=== PATIENT | female | born 1975 | race Two or more races ===

== ENCOUNTER 2024-11-20 08:44 | Emergency (ER) | payer BC, OTHER ==
[~2024-11-20] VITALS: Ht 167.6 cm; Wt 89.2 kg
--- NOTE | 2024-11-20 09:38 | ED.PDOC ---
Musculoskeletal HPI Comments 49-year-old female patient presents to the clinic for right calf pain x7 days. Patient has scattered bruising to the right calf. Patient states that she had a deep tissue massage yesterday at the chiropractor for the pain. Patient has been standing I have no all day due to a new position at work. Patient states that she has been standing for more than 8 hours 7 days a week. Patient has not been wearing compression stockings. Patient denies any history of DVT. Patient denies any chest pain or shortness of breath. No swelling or inflammation noted to the right calf. Patient denies any knee pain or ankle pain. Chief Complaint: Lower Extremity Time Seen by MD: 08:54 Primary Care Provider: britton Norman Notes: Nurses Notes, Medications, Allergies Allergies: Coded Allergies: NO KNOWN ALLERGIES (Unverified , 11/20/24) Home Meds Active Scripts Lidocaine (Anorectal) (Lidocaine 5%) 5 % Cre, 5 % EX TID for 20 Days, #60 GRAMS 0 Refills Prov:SHEILA BISHOP [employer] 11/20/24 Ibuprofen (Ibuprofen) 600 Mg Tab, 1 TAB PO TID for 21 Days, #63 TAB 0 Refills Prov:SHEILA BISHOP [employer] 11/20/24 Acetaminophen W/ Codeine (Tylenol W/Cod #3) 1 Tab Tb, 1 TAB PO Q6HP PRN for 2 Days, #8 TAB 0 Refills Prov:SHEILA BISHOP [employer]PECT[employer] 11/20/24 Mode of Arrival: Ambulatory Constitutional: denies: chills, diaphoresis, fatigue, fever, malaise, sweats, weakness, others EENTM: denies: blurred vision, double vision, ear bleeding, ear discharge, ear drainage, ear pain, ear ringing, eye pain, eye redness, hearing loss, mouth pain, mouth swelling, nasal discharge, nose bleeding, nose congestion, nose pain, photophobia, tearing, throat pain, throat swelling, voice changes, others Respiratory: denies: cough, hemoptysis, orthopnea, SOB at rest, shortness of breath, SOB with excertion, stridor, wheezing, others Cardiovascular: denies: chest pain, dizzy spells, diaphoresis, Dyspnea on exertion, edema, irregular heart beat, left arm pain, lightheadedness, palpitat ions, PND, syncope, others Gastrointestinal: denies: abdomen distended, abdominal pain, blood streaked bow els, constipated, diarrhea, dysphagia, difficulty swallowing, hematemesis, melena, nausea, poor appetite, poor fluid intake, rectal bleeding, rectal pain, vomiting, others Genitourinary: denies: abnormal vagina bleeding, burning, dyspareunia, dysuria, flank pain, frequency, hematuria, incontinence, pain, , vagina discharge, urgency, others Musculoskeletal: reports: muscle pain (Right calf) Integumetry: denies: bruises, change in color, change in hair/nails, dryness, laceration, lesions, lumps, rash, wounds, others Allergic/Immunocompromised: denies: Difficulty Healing, Frequent Infections, Hives, Itching, others Hematologic/Lymphatic: denies: anemia, blood clots, easy bleeding, easy bruising, swollen glands, others Endocrine: denies: excessive hunger, excessive sweating, excessive thirst, excessive urination, flushing, intolerance to cold, intolerance to heat, unexplained weight gain, unexplained weight loss, others Psychiatric: denies: anxiety, bipolar disorder, depression, hopeless, panic disorder, schizophrenia, sleepless, suicidal, others All Other Systems: Reviewed and Negative Physical Exam General Appearance: No Apparent Distress, Normal HEENT: Normal ENT Inspection, Pharynx Normal, TMs Normal Neck: Full Range of Motion, Non-Tender, Normal, Normal Inspection Respiratory: Chest Non-Tender, Lungs Clear, No Accessory Muscle Use, No R espiratory Distress, Normal Breath Sounds Cardiovascular: No Edema, No JVD, No Murmur, No Gallop, Normal Peripheral Pulses, Regular Rate/Rhythm Breast Exam: Deferred Gastrointestinal: No Organomegaly, Non Tender, No Pulsatile Mass, Normal Bowel Sounds, Soft Genitalia: Deferred Pelvic: Deferred Rectal: Deferred Extremities: No calf tenderness, Normal capillary refill, Normal inspection, Normal range of motion, Non-tender, No pedal edema Musculoskeletal : Location: Right Extremity Location: Calf (Tenderness to palpation to the right calf, scattered bruising to the right calf) Apperance: Tenderness: Moderate Neurologic: Alert, 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 Was a procedure done?: No Differential Diagnosis EXT Differential Diagnosis: Deep Vein Thrombosis, Sprain, Contusion X-Ray, Labs, Meds, VS Vital Signs Date Time Temp Pulse Resp B/P (MAP) Pulse Ox O2 Delivery O2 Flow Rate FiO2 11/20/24 12:32 74 17 98 Room Air 11/20/24 12:32 98.3 74 17 120/63 (82) 98 98.3 11/20/24 11:03 98.8 11/20/24 10:05 98.0 11/20/24 09:51 98.7 88 18 118/78 (91) 98 98.7 11/20/24 09:51 78 17 98 Room Air 11/20/24 08:54 98.2 87 17 109/70 (83) 99 Current Medications Medications (Trade) Dose Ordered Sig/Sanchez Route Start Time Stop Time Status Last Admin Acetaminophen (Tylenol Tablet) 325 mg ONCE ONCE PO 11/20/24 10:00 11/20/24 10:07 DC 11/20/24 10:05 Acetaminophen/ Hydrocodone Bitart ([facility] 5/325MG Tab) 1 tab ONCE ONCE PO 11/20/24 10:45 11/20/24 10:46 DC 11/20/24 10:48 PATIENT: JESENIA OSBORNE: [id number]: [id number] : 1975 LOC: ER ROOM / BED: / AGE / SEX: 49 / F ADM STATUS: REG ER SERVICE [id number] ORDERING PHYSICIAN: SHEILA BISHOP PROCEDURE(s): RLDVT - RT Lower DVT REASON: pain to the right calf ORDER NUMBER(s): [id number], ACCESSION NUMBER(s): [id number] RIGHT LOWER EXTREMITY VENOUS DOPPLER CLINICAL HISTORY: pain to the right calf TECHNIQUE: Right lower extremity venous doppler study was performed. COMPARISON: None FINDINGS: The right common femoral, superficial femoral, popliteal, posterior tibial veins appear patent with normal augmentation, phasicity, compressibility and color- flow. . IMPRESSION: 1. No sonographic evidence of DVT in the right leg. HS:Y ATED BY: LUIS CULLEN MD DICTATED DATE/TIME: 11/20/24 115 SIGNED BY: LUIS CULLEN MD SIGNED DATE/TIME: 11/20/241156 CC: X-Ray, Labs, Meds, VS Comment Patient advised to use compression stockings during the day while standing and walking at her new job. Patient advised to take anti-inflammatories for pain. Patient advised to elevate at the end of her day to help with pain relief. On re-evaluation patient has symptomatic improvement. Patient is stable for discharge at this time. All test results and diagnostic imaging have been interpreted. All diagnostic findings, discharge care, and education instruction provided to the patient. Follow-up with PCP in 2-3 days Patient verbalized understanding, discharge instructions and agrees to treatment plan Vital signs are stable Patient is ambulatory Patient advised of which symptoms necessitate a return visit to the emergency room. Patient to return emergency room for any new worsening symptoms. Patient is aware that the purpose of this visit is for an acute medical emergency requiring emergent stabilization. Chronic conditions, including malignancies have not been ruled out. Patient is instructed to follow up with PCP as directed for continued care and workup. If unable to arrange follow up, patient is to return to the emergency room for reassessment. Patient was given verbal and written discharge instructions and acknowledges understanding Time of 1ST Reevaluation: 12:00 Reevaluation 1ST: Improved Patient Education/Counseling: Diagnosis, Treatment, Prognosis Family Education/Counseling: No Family Present Departure 1 Departure Time of Disposition: 12:15 Impression: Primary Impression: Right calf pain Additional Impression: Muscle cramp Disposition: HOME / SELF CARE / HOMELESS Condition: Stable e-Prescriptions Lidocaine (Anorectal) (Lidocaine 5%) 5 % Cre 5 % EX TID for 20 Days, #60 GRAMS 0 Refills Prov: SHEILA BISHOP [employer] INSPECTOR 11/20/24 Ibuprofen (Ibuprofen) 600 Mg Tab 1 TAB PO TID for 21 Days, #63 TAB 0 Refills Prov: SHEILA BISHOP [employer] INSPECTOR 11/20/24 Acetaminophen W/ Codeine (Tylenol W/Cod #3) 1 Tab Tb 1 TAB PO Q6HP PRN for 2 Days, #8 TAB 0 Refills Prov: SHEILA BISHOP [employer] INSPECTOR 11/20/24 Discharged With: Self Critical Care Note Critical Care Time?: No Stability Stability form required: No Heart Score Heart Score: Heart Score Response (Comments) Value History N/A 0 EKG N/A 0 Age N/A 0 Risk Factors N/A 0 Troponin N/A 0 Total 0 SHEILA BISHOP [facility] Nov 20, 2024 09:38
[2024-11-20] MEDS: ACETAMINOPHEN 325 MG TAB PO ONE (10:05)
[2024-11-20] MEDS: HYDROcodone-ACET 5/325MG TAB PO ONE (10:48)
--- NOTE | 2024-11-20 11:59 | DVH ---
RIGHT LOWER EXTREMITY VENOUS DOPPLER CLINICAL HISTORY: pain to the right calf TECHNIQUE: Right lower extremity venous doppler study was performed. COMPARISON: None FINDINGS: The right common femoral, superficial femoral, popliteal, posterior tibial veins appear patent with n ormal augmentation, phasicity, compressibility and color-flow. . IMPRESSION: 1. No sonographic evidence of DVT in the right leg. HS:Y
[2024-11-20] MEDS ORDERED: ACE3T PO (12:19)
[2024-11-20] MEDS ORDERED: IBUP-1454 PO (12:20)
[2024-11-20] MEDS ORDERED: LIDO5CRE14 EX (12:21)
[2024-11-20 12:32] VITALS: BP 120/63; PULSE 74; RESP 17; TEMP 98.3; O2SAT 98
== END 2024-11-20 12:34 | disposition home or self-care (01) ==
LOC: ER 08:44
DX: S80.11XA Contusion of right lower leg, initial encounter (principal); Z79.899 Other long term (current) drug therapy; X58.XXXA Exposure to other specified factors, initial encounter; Y93.89 Activity, other specified; Y92.89 Other specified places as the place of occurrence of the external cause; Y99.8 Other external cause status
CPT/HCPCS: 93971

== ENCOUNTER 2025-05-29 11:15 | Inpatient (IN) | payer BC ==
[~2025-05-29] VITALS: Ht 165.1 cm; Wt 81.4 kg
[~2025-05-29 11:15] MED LIST: ACE3T PO; IBUP-1454 PO; LIDO5CRE14 EX
--- NOTE | 2025-05-29 11:47 | ED.PDOC ---
History of Present Illness HPI Comments 50-year-old female presents to the ER with prior surgical history of , gastric bypass and the chief complaint of diarrhea. Patient reports on having massive watery diarrhea which has been on and off for the past week. Patient states on having worsened symptoms last night for which she went to urgent care and was sent to the ER. Patient Notes that she does have an appointment with her PCP in six weeks. Denies chills, fever, N/V, SOB, CP. No other associated symptoms, modifiers, recent injuries or sick contacts present at this time. Time Seen by MD: 11:30 Primary Care Provider: britton Reviewed Notes: Nurses Notes, Medications, Allergies Allergies: Coded Allergies: NO KNOWN ALLERGIES (Unverified , 11/20/24) Home Meds Active Scripts Lidocaine (Anorectal) (Lidocaine 5%) 5 % Cre, 5 % EX TID for 20 Days, #60 GRAMS 0 Refills Prov:SHEILA BISHOP [facility] 11/20/24 Ibuprofen (Ibuprofen) 600 Mg Tab, 1 TAB PO TID for 21 Days, #63 TAB 0 Refills Prov:SHEILA BISHOP [facility] 11/20/24 Acetaminophen W/ Codeine (Tylenol W/Cod #3) 1 Tab Tb, 1 TAB PO Q6HP PRN for 2 Days, #8 TAB 0 Refills Prov:SHEILA BISHOP [facility] 11/20/24 Information Source: Patient Mode of Arrival: Ambulatory Severity: Moderate Timing: Days Duration: Since onset, Days Prehospital treatment: None Past Medical History PAST MEDICAL HISTORY: Denies Surgical History: Surgical History (Other): Gastric bypass SPA HOST History: No Pertinent SPA HOST History Family History Family History: Reviewed,noncontributory to illness, Unknown Social History Smoker: Non-Smoker Alcohol: Denies ETOH Use Drugs: Denies Drug Use Lives In: Home Constitutional: denies: chills, diaphoresis, fatigue, fever, malaise, sweats, weakness, others EENTM: denies: blurred vision, double vision, ear bleeding, ear discharge, ear drainage, ear pain, ear ringing, eye pain, eye redness, hearing loss, mouth pain, mouth swelling, nasal discharge, nose bleeding, nose congestion, nose pain, photophobia, tearing, throat pain, throat swelling, voice changes, others Respiratory: denies: cough, hemoptysis, orthopnea, SOB at rest, shortness of breath, SOB with excertion, stridor, wheezing, others Cardiovascular: denies: chest pain, dizzy spells, diaphoresis, Dyspnea on exertion, edema, irregular heart beat, left arm pain, lightheadedness, palpitations, PND, syncope, others Gastrointestinal: reports: diarrhea; denies: abdomen distended, abdominal pain, blood streaked bowels, constipated, dysphagia, difficulty swallowing, hematemesis, melena, nausea, poor appetite, poor fluid intake, rectal bleeding, rectal pain, vomiting, others Genitourinary: denies: abnormal vagina bleeding, burning, dyspareunia, dysuria, flank pain, frequency, hematuria, incontinence, pain, , vagina discharge, urgency, others Neurological: denies: dizziness, fainting, headache, left sided numbness, left sided weakness, numbness, paresthesia, pre-existing deficit, right sided numbness, right sided weakness, seizure, speech problems, tingling, tremors, weakness, others Musculoskeletal: denies: back pain, gout, joint pain, joint swelling, muscle pain, muscle stiffness, neck pain, others Integumetry: denies: bruises, change in color, change in hair/nails, dryness, laceration, lesions, lumps, rash, wounds, others Allergic/Immunocompromised: denies: Difficulty Healing, Frequent Infections, Hives, Itching, others Hematologic/Lymphatic: denies: anemia, blood clots, easy bleeding, easy bruising, swollen glands, others Endocrine: denies: excessive hunger, excessive sweating, excessive thirst, excessive urination, flushing, intolerance to cold, intolerance to heat, unexplained weight gain, unexplained weight loss, others Psychiatric: denies: anxiety, bipolar disorder, depression, hopeless, panic disorder, schizophrenia, sleepless, suicidal, others All Other Systems: Reviewed and Negative Physical Exam General Appearance: Moderate Distress, Normal HEENT: Normal ENT Inspection, Pharynx Normal, TMs Normal Neck: Full Range of Motion, Non-Tender, Normal, Normal Inspection Respiratory: Chest Non-Tender, Lungs Clear, No Accessory Muscle Use, No Respira tory Distress, Normal Breath Sounds Cardiovascular: No Edema, No JVD, No Murmur, No Gallop, Normal Peripheral Pulses, Regular Rate/Rhythm Breast Exam: Deferred Gastrointestinal: No Organomegaly, Non Tender, No Pulsatile Mass, Normal Bowel Sounds, Soft Genitalia: Deferred Pelvic: Deferred Rectal: Deferred Extremities: No calf tenderness, Normal capillary refill, Normal inspection, Normal range of motion, Non-tender, No pedal edema Musculoskeletal : Apperance: Normal Neurologic: Alert, 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 Was a procedure done?: No Differential Dx Considerations may include: Gastroenteritis Electrolyte imbalance X-Ray, Labs, Meds, VS Vital Signs Date Time Temp Pulse Resp B/P (MAP) Pulse Ox O2 Delivery O2 Flow Rate FiO2 05/29/25 11:48 98.2 103 18 108/50 (69) 95 98.2 Lab Test 05/29/25 11:59 05/29/25 11:54 Range/Units White Blood Count 16.5 H 4.4-10.8 10^3/uL Red Blood Count 4.71 4.0-5.20 10^6/uL Hemoglobin 14.7 12.2-16.2 g/dL Hematocrit 42.5 36.0-46.0 % Mean Corpuscular Volume 90.1 80.0-100.0 fL Mean Corpuscular Hemoglobin 31.2 28.0-32.0 pg Mean Corpuscular Hemoglobin Concent 34.7 32.0-36.0 g/dL Red Cell Distribution Width 14.0 11.8-14.3 % Platelet Count 333 140-450 10^3/uL Mean Platelet Volume 8.1 6.9-10.8 fL Neutrophils (%) (Auto) 86.4 H 37.0-80.0 % Lymphocytes (%) (Auto) 7.0 L 10.0-50.0 % Monocytes (%) (Auto) 6.0 0.0-12.0 % Eosinophils (%) (Auto) 0.3 0.0-7.0 % Basophils (%) (Auto) 0.3 0.0-2.0 % Neutrophils # (Auto) 14.3 H 1.6-8.6 10 ^3/uL Lymphocytes # (Auto) 1.2 0.4-5.4 10 ^3/uL Monocytes # (Auto) 1.0 0-1.3 10 ^3/uL Eosinophils # (Auto) 0 0-0.8 10 ^3/uL Basophils # (Auto) 0.1 0-0.2 10 ^3/uL Nucleated Red Blood Cells 0.1 % Sodium Level 135 L 136-145 mmol/L Potassium Level 3.6 3.5-5.1 mmol/L Chloride Level 100 98-107 mmol/L Carbon Dioxide Level 21 20-31 mmol/L Anion Gap 14 5-15 Blood Urea Nitrogen 12 9-23 mg/dL Creatinine 0.74 0.550-1.02 mg/dL Glomerular Filtration Rate Calc 98 >90 mL/min BUN/Creatinine Ratio 16.2 10.0-20.0 Serum Glucose 81 74-106 mg/dL Calcium Level 9.5 8.7-10.4 mg/dL Urine Color Pending Urine Clarity Pending Urine pH Pending Urine Specific [place] Pending Urine Protein Pending Urine Ketones Pending Urine Blood Pending Urine Nitrite Pending Urine Bilirubin Pending Urine Urobilinogen Pending Urine Leukocyte Esterase Pending Urine RBC Pending Urine Microscopic WBC Pending Urine Squamous Epithelial Cells Pending Urine Bacteria Pending Urine Glucose Pending Patient alert. Complaining of abdominal discomfort. Vitals stable. Answering questions. WBC elevated. Possible gastroenteritis. Establish intravenous access. Was given fluids. Was given Rocephin. Was given Flagyl. Explained to the patient. Continue monitoring. Time of 1ST Reevaluation: 12:00 Reevaluation 1ST: Unchanged Patient Education/Counseling: Diagnosis, Treatment, Prognosis Family Education/Counseling: No Family Present SEPSIS Sepsis Screen Physician Orders Urinalysis (05/29/25 11:24) Vital Signs Date Time Temp Pulse Resp B/P (MAP) Pulse Ox O2 Delivery O2 Flow Rate FiO2 05/29/25 11:48 98.2 103 18 108/50 (69) 95 98.2 Laboratory Tests Test 05/29/25 11:59 White Blood Count 16.5 10^3/uL (4.4-10.8) H Departure 1 Departure Time of Disposition: 13:12 Impression: Primary Impression: Gastroenteritis Disposition: ADMITTED INPATIENT Admit to: Med Surg Condition: Guarded Critical Care Note Critical Care Time?: No Stability Stability form required: No Heart Score Heart Score: Heart Score Response (Comments) Value History N/A 0 EKG N/A 0 Age N/A 0 Risk Factors N/A 0 Troponin N/A 0 Total 0 I personally scribed for BILL GIRALDO MD ([email or web address]) on 05/29/25 at 11:47. Electronically submitted by Mateus Holm ([email or web address]). BILL GIRALDO MD May 29, 2025 11:47
[2025-05-29 12:35] LABS: Hematocrit 42.5 % (36.0-46.0); Hemoglobin 14.7 g/dL (12.2-16.2); Mean Corpuscular Hemoglobin 31.2 pg (28.0-32.0); Mean Corpuscular Volume 90.1 fL (80.0-100.0); Nucleated Red Blood Cells % 0.1 %
[2025-05-29 12:45] LABS: Chloride 100 mmol/L (98-107); Potassium 3.6 mmol/L (3.5-5.1)
[2025-05-29 12:46] LABS: Anion Gap 14 (5-15); Calcium 9.5 mg/dL (8.7-10.4); Carbon Dioxide 21 mmol/L (20-31)
[2025-05-29 12:47] LABS: Sodium 135 mmol/L (136-145)
[2025-05-29 12:51] LABS: BUN/Creatinine Ratio 16.2 (10.0-20.0); Blood Urea Nitrogen 12 mg/dL (9-23); Glucose 81 mg/dL (74-106)
[2025-05-29 13:24] LABS: Urine Protein, UAD TRACE (Negative)
[2025-05-29] MEDS: cefTRIAXone 1GM/50ML D5W 50 ML IV ONE (13:33)
[2025-05-29] MEDS: SODIUM CHLORIDE 0.9% 1,000 ML IV ONE ×2 (13:34→13:35)
--- NOTE | 2025-05-29 13:48 | DVH ---
Indication: enteritis Technique: CT axial images of the abdomen and pelvis are obtained without contrast. Coronal and sagit marissa reformats were obtained. Radiation Dose Information: CTDI volume is 10.1 mGy. Dose-length product is 543.2 mGy*cm Comparison: None FINDINGS: There is limited interpretation of the abdomen and pelvis without administration of intravenous contr ast. Lung bases demonstrate no pleural effusion right lower lobe solid nodule. 3 mm left lower lobe subple ural nodule Adrenal glands, spleen, pancreas, liver unremarkable in shape. No CT evidence for cholelithiasis. Kidneys demonstrate no hydronephrosis. Postsurgical changes stomach. Small bowel loops are normal in caliber. Bowel wall thickening with surrounding stranding involving the entirety of the colon. No secondary si gns for appendicitis. Numerous retroperitoneal lymph nodes up to 1 cm. Bladder partially distended. Multiple uterine leiom yomas. No free pelvic fluid. No inguinal lymphadenopathy. Moderate lumbar degenerative disc disease most pronounced at L5-S1. IMPRESSION: Limited evaluation without contrast. Diffuse colonic wall thickening with surrounding stranding. Differential considerations include coli tis, inflammatory bowel disease. Postsurgical changes stomach. Numerous retroperitoneal lymph nodes up to 1 cm, likely reactive. Uterine leiomyomas including calcified leiomyomas. Pulmonary nodules up to 5 mm. Recommend follow-up per Fleischner society criteria. Other findings as described
--- NOTE | 2025-05-29 18:53 | DVHHP2 ---
Admitting Diagnosis: Diarrhea History of Present Illness 50-year-old female presents to the ER with prior surgical history of , gastric bypass and the chief complaint of diarrhea. Patient reports on having massive watery diarrhea which has been on and off for the past week. Patient states on having worsened symptoms last night for which she went to urgent care and was sent to the ER. Patient Notes that she does have an appointment with her PCP in six weeks. Denies chills, fever, N/V, SOB, CP. No other associated symptoms, modifiers, recent injuries or sick contacts present at this time. 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 Mild distress HEENT-atraumatic, normocephalic Heart-regular rate and rhythm Lungs clear to auscultate bilaterally Abdomen soft, mild tender, nondistended Musculoskeletal-no edema cyanosis Neuro-AO x3, no focal deficits SEPSIS Sepsis Screen Date sepsis recognized/suspect: May 29, 2025 Time Sepsis recognized/suspect: 1148 Recent Procedure: No On Antibiotic Therapy: No Respiratory Rate >20: No Heart Rate >90: Yes Temp<36 C (96.8 F) or >38.3 C: No SBP <90 or MAP <65 mmHG: No New Acute Mental Status Change: No Is the patient on CPAP, BIPAP,: No Physician Orders Sodium Chloride 0.9% (05/29/25 13:15) Blood Culture (05/29/25 13:13) Ct Ab Pel Wo Con-No Oral Or Iv (05/29/25 13:14) Cardiac Diet-2gna,Lofat,Lochol (05/29/25 Dinner) Ceftriaxone Ivpb Rocephin (05/30/25 10:00) Metronidazole Ivpb Flagyl (05/29/25 19:00) Lactated Ringers Lr (05/29/25 19:00) Admit (05/29/25 18:47) Code Status (05/29/25 18:47) Vital Signs .PER UNIT PROTOCOL (05/29/25 18:47) Review Orders With Adm.Md (05/29/25 18:47) Encourage Activity As Tolerate (05/29/25 18:47) Sodium Chloride Lock (Saline Lock Ns) (05/29/25 22:00) Docusate Sodium Capsule (Colace Capsule) (05/29/25 19:00) Acetaminophen Tablet (Tylenol Tablet) (05/29/25 19:00) Notify Md Of Changes From Base (05/29/25 18:47) Advance Directive (05/29/25 18:47) Patient Condition (05/29/25 18:47) Allergies (05/29/25 18:47) Hydrocodone-Acet 5/325mg Tab ([place] 5/32 (05/29/25 19:00) Ondansetron Hcl (Zofran) (05/29/25 19:00) Lovenox 40mg (05/30/25 10:00) Comprehensive Metabolic Panel (05/30/25 05:00) Comprehensive Metabolic Panel (05/31/25 05:00) Comprehensive Metabolic Panel (06/01/25 05:00) Comprehensive Metabolic Panel (06/02/25 05:00) Comprehensive Metabolic Panel (06/03/25 05:00) Complete Blood Count (05/30/25 05:00) Complete Blood Count (05/31/25 05:00) Complete Blood Count (06/01/25 05:00) Complete Blood Count (06/02/25 05:00) Complete Blood Count (06/03/25 05:00) Vital Signs Date Time Temp Pulse Resp B/P (MAP) Pulse Ox O2 Delivery O2 Flow Rate FiO2 05/29/25 18:03 97.6 102 20 112/64 (80) 97 97.6 05/29/25 15:17 97.6 65 18 122/67 (85) 98 97.6 05/29/25 13:22 97.5 100 20 102/73 (83) 98 97.5 05/29/25 13:22 100 20 98 Room Air 05/29/25 11:48 98.2 103 18 108/50 (69) 95 98.2 Laboratory Tests Test 05/29/25 11:59 05/29/25 13:40 White Blood Count 16.5 10^3/uL (4.4-10.8) H Lactic Acid Level 0.9 mmol/L (0.4-2.0) Medications Medications Dose Ordered Sig/Sanchez Route Start Time Stop Time Status Last Admin Dose Admin Ceftriaxone Sodium 50 ml @ 100 mls/hr ONCE ONCE IV 05/29/25 13:15 05/29/25 13:44 DC 05/29/25 13:33 Metronidazole 100 ml @ 100 mls/hr ONCE ONCE IV 05/29/25 13:15 05/29/25 14:14 DC 05/29/25 13:41 Sodium Chloride 1,000 ml @ 1,000 mls/hr Q1H ONCE IV 05/29/25 13:15 05/29/25 14:14 DC 05/29/25 13:34 Results Labs Test 05/29/25 13:40 05/29/25 11:59 05/29/25 11:54 Range/Units Lactic Acid Level 0.9 0.4-2.0 mmol/L White Blood Count 16.5 H 4.4-10.8 10^3/uL Red Blood Count 4.71 4.0-5.20 10^6/uL Hemoglobin 14.7 12.2-16.2 g/dL Hematocrit 42.5 36.0-46.0 % Mean Corpuscular Volume 90.1 80.0-100.0 fL Mean Corpuscular Hemoglobin 31.2 28.0-32.0 pg Mean Corpuscular Hemoglobin Concent 34.7 32.0-36.0 g/dL Red Cell Distribution Width 14.0 11.8-14.3 % Platelet Count 333 140-450 10^3/uL Mean Platelet Volume 8.1 6.9-10.8 fL Neutrophils (%) (Auto) 86.4 H 37.0-80.0 % Lymphocytes (%) (Auto) 7.0 L 10.0-50.0 % Monocytes (%) (Auto) 6.0 0.0-12.0 % Eosinophils (%) (Auto) 0.3 0.0-7.0 % Basophils (%) (Auto) 0.3 0.0-2.0 % Neutrophils # (Auto) 14.3 H 1.6-8.6 10 ^3/uL Lymphocytes # (Auto) 1.2 0.4-5.4 10 ^3/uL Monocytes # (Auto) 1.0 0-1.3 10 ^3/uL Eosinophils # (Auto) 0 0-0.8 10 ^3/uL Basophils # (Auto) 0.1 0-0.2 10 ^3/uL Nucleated Red Blood Cells 0.1 % Sodium Level 135 L 136-145 mmol/L Potassium Level 3.6 3.5-5.1 mmol/L Chloride Level 100 98-107 mmol/L Carbon Dioxide Level 21 20-31 mmol/L Anion Gap 14 5-15 Blood Urea Nitrogen 12 9-23 mg/dL Creatinine 0.74 0.550-1.02 mg/dL Glomerular Filtration Rate Calc 98 >90 mL/min BUN/Creatinine Ratio 16.2 10.0-20.0 Serum Glucose 81 74-106 mg/dL Calcium Level 9.5 8.7-10.4 mg/dL Urine Color Yellow Yellow Urine Clarity Turbid H Clear Urine pH 5.5 5.0-9.0 Urine Specific [place] 1.025 1.001-1.035 Urine Protein Trace H Negative Urine Ketones 4+ H Negative Urine Blood Negative Negative /uL Urine Nitrite Negative Negative Urine Bilirubin 1+ H Negative Urine Urobilinogen 3 H Negative mg/dL Urine Leukocyte Esterase Negative Negative /uL Urine RBC 5 0 - 4 /hpf Urine Microscopic WBC 4 0-5 /HPF Urine Squamous Epithelial Cells Mod <5 /hpf Urine Bacteria Mod H None Seen /hpf Urine Mucus Few None Seen Urine Glucose Normal Normal mg/dL Primary Diagnosis Diarrhea likely due to acute colitis Uterine leiomyomas Pulmonary nodules up to 5 mm. Plan Start ceftriaxone 1 g q.day, Flagyl 500 q.8 hours for colitis. IV fluids for hydration Pain control Antiemetic Follow the PCP regarding uterine leiomyomas, pulmonary nodules 5 mm Patient can be discharged when she can tolerate p.o. antibiotics Clear liquid diet advanced to low GI fiber diet Full code Lovenox for DVT prophylaxis No GI prophylaxis needed Plan discussed with: Patient Problems List: (1) Gastroenteritis Status: Acute Date of Service: May 29, 2025 Billing Provider: ANJALI SHAW MD Common Visit Codes: [id number] INP/OBS CARE (HIGH) ANJALI SHAW MD May 29, 2025 18:53
[2025-05-29] MEDS ORDERED: ONDANSETRON HCL 4 MG/2 ML VIAL IV PRN (19:00)
[2025-05-29] MEDS ORDERED: HYDROcodone-ACET 5/325MG TAB PO PRN (19:00)
[2025-05-29] MEDS: LACTATED RINGER'S 1,000 ML IV ONE (19:00)
[2025-05-29] MEDS ORDERED: ACETAMINOPHEN 325 MG TAB PO PRN (19:00)
[2025-05-29] MEDS ORDERED: DOCUSATE SOD 100 MG CAP PO PRN (19:00)
[2025-05-29 20:15] VITALS: BP 105/52; PULSE 94; RESP 16; TEMP 97.7; O2SAT 99
[2025-05-29 21:00] VITALS: BP 120/95; PULSE 75; RESP 16; TEMP 97.5; O2SAT 93
[2025-05-29 21:25] VITALS: BP 102/55; PULSE 93; RESP 16; TEMP 97.5; O2SAT 97
[2025-05-29] MEDS: SODIUM CHLOR 0.9% PF (SALINE LOCK) 10ML VIAL/SYR IV SCH (21:50)
[2025-05-29] MEDS ORDERED: LEVO175T2 PO (22:01)
[2025-05-30] VITALS (8 sets, daily range): BP systolic 101–137; BP diastolic 58–92; PULSE 74–107; RESP 15–19; TEMP 97–98.3; O2SAT 95–99
[2025-05-30 08:11] LABS: Hematocrit 36.4 % (36.0-46.0); Hemoglobin 12.8 g/dL (12.2-16.2); Mean Corpuscular Hemoglobin 31.5 pg (28.0-32.0); Mean Corpuscular Volume 89.8 fL (80.0-100.0); Nucleated Red Blood Cells % 0.0 %
[2025-05-30 08:31] LABS: Albumin 3.2 g/dL (3.2-4.8); Alkaline Phosphatase 77 U/L (46-116); Anion Gap 9 (5-15); BUN/Creatinine Ratio 10.6 (10.0-20.0); Calcium 9.0 mg/dL (8.7-10.4); Carbon Dioxide 26 mmol/L (20-31); Glucose 95 mg/dL (74-106); Sodium 142 mmol/L (136-145)
[2025-05-30 08:32] LABS: Bilirubin, Total 0.4 mg/dL (0.2-1.0)
[2025-05-30 08:35] LABS: Alanine Aminotransferase < 9 U/L (7-40); Blood Urea Nitrogen 7 mg/dL (9-23); Chloride 107 mmol/L (98-107); Potassium 3.4 mmol/L (3.5-5.1); Total Protein 4.9 g/dL (5.7-8.2)
[2025-05-30] MEDS: ENOXAPARIN SOD 40 MG/0.4 ML SYRINGE SC SCH (09:33)
[2025-05-30] MEDS: cefTRIAXone 1GM/50ML D5W 50 ML IV SCH (09:34)
--- NOTE | 2025-05-30 09:58 | DVHPNRES ---
Progress Note Date Seen: May 30, 2025 Resident Creating Document: INEZ HANSEN RESIDENT Medical Necessity Reason Pt with a Central, PICC or Fol: No Subjective Review of Systems Michelle Cuellar is a 50 years old female with past medical history of hemorrhoids and hypothyroidism. She presented with chief complaint of diarrhea for last 6 days, resulting in weight loss (10 lb). Yesterday, she presented to ED and complained of worsening diarrhea with episodes occurring every 15-30 minutes. The stools are watery, foul-smelling, voluminous, floating. She complained of blood in stools. The episode of diarrhea was followed by a course of amoxicillin for ear infection. No history of recent travel. No complaints of nausea, vomiting, abdominal pain, fever, GERD. She had normal bowel and bladder habits before symptom onset. She underwent a gastric bypass for weight reduction in 1999, does not complain any similar episodes in the past. Last colonoscopy in 2020 showing internal hemorrhoids. Her vitals showed increased SC, RR on admission. Labs show increased leukocytes and neutrophils. She was examined at bedside today. Complains of 2 episodes of diarrhea today. Personal history: Quit smoking 15 years ago. No recreational drug use. Occasional use of alcohol. Undergoes colonoscopy every 5 years, mother- hx of colon cancer. She is postmenopausal, no breakthrough bleeding. Past history: Hypothyroidism, hemorrhoids Family history: Colon cancer in mother Past surgical history: section, gastric bypass (In 1999; for weight reduction) Constitutional: Denies weight loss, fever and chills. HEENT: Denies changes in vision and hearing. Respiratory: Denies shortness of breath and cough Cardiovascular: Denies chest discomfort or palpitations GI: Diarrhea. Denies nausea, vomiting, abdominal pain : Denies dysuria and urinary frequency. Musculoskeletal: Denies myalgias and joint pain Skin: Denies rash and pruritus. Neurological: Denies dizziness, headache, vision or hearing problems Objective vital signs Vital Sign Date Time Temp Pulse Resp B/P (MAP) Pulse Ox O2 Delivery O2 Flow Rate FiO2 05/30/25 08:39 97.7 89 18 103/67 (79) 99 97.7 05/29/25 21:25 Room Air* 0 21 Total Intake and Output 05/29/25 05/29/25 05/30/25 15:00 23:00 07:00 Intake Total 100 ml 340 ml Balance 100 ml 340 ml medications Current Medications Medications Dose Ordered Sig/Sanchez Route Start Time Stop Time Status Last Admin Dose Admin Ceftriaxone Sodium 50 ml @ 100 mls/hr DAILY IV 05/30/25 10:00 05/30/25 09:34 100 MLS/HR Metronidazole 100 ml @ 100 mls/hr Q8H IV 05/29/25 22:00 05/30/25 05:41 100 MLS/HR Sodium Chloride 10 ml Q8HR IV 05/29/25 22:00 05/30/25 05:41 10 ML Docusate Sodium 100 mg BIDPRN PRN PO 05/29/25 19:00 Acetaminophen 650 mg Q6HP PRN PO 05/29/25 19:00 Acetaminophen/ Hydrocodone Bitart 1 tab Q4HP PRN PO 05/29/25 19:00 Ondansetron HCl 4 mg Q4HP PRN IV 05/29/25 19:00 Enoxaparin Sodium 40 mg DAILY SC 05/30/25 10:00 05/30/25 09:33 40 MG Examination General: Patient alert and oriented in person, place and time. Patient following commands. HEENT: Normocephalic, atraumatic, moist mucous membranes Respiratory/pulmonary: Clear lungs bilaterally, vesicular murmurs present in almost all lung huitron, no associated crackles or wheezes. Cardiovascular: Normal heart sounds S1 and S2 with no associated murmurs Abdomen: Abdomen discomfort to palpation. No guarding, rigidity, no palpable masses. Extremities: There is no peripheral edema present at the lower extremities. Peripheral Pulses: 3+ Radial (R). 3+ Radial (L). 3+ Dorsalis pedis (R). 3+ Dorsalis pedis(L) Skin: No rashes or pruritus, there is no sacral edema present at this time. Neurological: Intact cranial nerves with no focal neurologic deficits laboratory and microbiology Laboratory Tests 05/30/25 06:42 Test 05/30/25 06:42 Range/Units Serum Glucose 95 74-106 mg/dL Problem List/Assessment/Plan Problem List/Assessment/Plan #Sepsis d/t Acute gastroenteritis due to infection, possible #Acute colitis, due to infection, possible #Inflammatory bowel disease, possible #Intravascular volume depletion, resolved #Tachycardia #Tachypnea #Leukocytosis with neutrophilia -Started on IV ceftriaxone and metronidazole -Continue IV fluids -Continue Zofran as needed -CT shows: Diffuse colonic wall thickening with surrounding stranding. Differential considerations include colitis, inflammatory bowel disease. Numerous retroperitoneal lymph nodes up to 1 cm, likely reactive. Numerous retroperitoneal lymph nodes up to 1 cm, likely reactive. -Stool, blood culture pending #Status post gastric bypass -CT shows Postsurgical changes stomach. #Solitary pulmonary nodule -Pulmonary nodules up to 5 mm. #Uterine leiomyomas -CT revealed Uterine leiomyomas including calcified leiomyomas. -Will follow-up with obgyn hospitalist physician outpatient #Hypothyroidism -Continue levothyroxine 150 mcg, home medication -TSH, T4 ordered #Hypokalemia -Potassium 3.4 today -Will continue monitoring and managing DVT prophylaxis: Lovenox Goals of care discussed with patient at bedside for more than 35 minutes Full code PCP Dr. Ananda Stern Plan discussed with Dr. Vazquez Plan discussed with: Patient INEZ HANSEN RESIDENT May 30, 2025 09:58
[2025-05-30] MEDS ORDERED: LEVOTHYROXINE SODIUM 50 MCG TAB PO SCH (10:45)
[2025-05-30] MEDS: POTASSIUM EFFERVESENT TAB 25 MEQ PO ONE ×2 (12:40→13:19)
[2025-05-30] MEDS: D5W/SOD CHL 0.45% 1,000 ML IV SCH (12:41)
[2025-05-30] MEDS: VANCOMYCIN HCL 250 MG CAP PO SCH (18:03)
[2025-05-31 01:00] VITALS: BP 130/87; PULSE 70; RESP 18; TEMP 97.9; O2SAT 96
[2025-05-31 05:00] VITALS: BP 128/79; PULSE 74; RESP 18; TEMP 98.1; O2SAT 99
[2025-05-31] MEDS: LEVOTHYROXINE SODIUM 50 MCG TAB PO SCH (05:10)
[2025-05-31 07:06] LABS: Hematocrit 36.6 % (36.0-46.0); Hemoglobin 12.6 g/dL (12.2-16.2); Mean Corpuscular Hemoglobin 31.0 pg (28.0-32.0); Mean Corpuscular Volume 90.2 fL (80.0-100.0); Nucleated Red Blood Cells % 0.1 %
[2025-05-31 07:32] LABS: Alkaline Phosphatase 69 U/L (46-116); Anion Gap 5 (5-15); BUN/Creatinine Ratio 7.8 (10.0-20.0); Blood Urea Nitrogen < 5 mg/dL (9-23); Calcium 9.0 mg/dL (8.7-10.4); Carbon Dioxide 28 mmol/L (20-31); Chloride 110 mmol/L (98-107); Glucose 92 mg/dL (74-106); Potassium 4.6 mmol/L (3.5-5.1); Sodium 143 mmol/L (136-145)
[2025-05-31 07:33] LABS: Alanine Aminotransferase < 9 U/L (7-40); Albumin 3.0 g/dL (3.2-4.8); Total Protein 4.7 g/dL (5.7-8.2)
[2025-05-31 07:35] LABS: Bilirubin, Total 0.2 mg/dL (0.2-1.0)
[2025-05-31 09:00] VITALS: BP 107/70; PULSE 83; RESP 16; TEMP 98.2; O2SAT 99
[2025-05-31 10:42] LABS: Hepatitis B Surface Antigen Negative (Negative); Hepatitis C Antibody Negative (Negative)
--- NOTE | 2025-05-31 11:22 | DVHDSRES ---
Discharge Summary Date of Admission Resident Creating Document: INEZ HANSEN RESIDENT May 29, 2025 at 18:47 Date of Discharge: May 31, 2025 Admitting Diagnosis Sepsis d/t Acute gastroenteritis due to infection, possible Wounds: No large wounds Labs/Diagnostic Data: Laboratory Results Test 05/31/25 06:36 05/30/25 12:04 05/30/25 06:42 05/30/25 01:20 White Blood Count 4.1 10^3/uL (4.4-10.8) Red Blood Count 4.06 10^6/uL (4.0-5.20) Hemoglobin 12.6 g/dL (12.2-16.2) Hematocrit 36.6 % (36.0-46.0) Mean Corpuscular Volume 90.2 fL (80.0-100.0) Mean Corpuscular Hemoglobin 31.0 pg (28.0-32.0) Mean Corpuscular Hemoglobin Concent 34.3 g/dL (32.0-36.0) Red Cell Distribution Width 14.1 % (11.8-14.3) Platelet Count 286 10^3/uL (140-450) Mean Platelet Volume 7.9 fL (6.9-10.8) Neutrophils (%) (Auto) 58.5 % (37.0-80.0) Lymphocytes (%) (Auto) 25.7 % (10.0-50.0) Monocytes (%) (Auto) 10.8 % (0.0-12.0) Eosinophils (%) (Auto) 3.8 % (0.0-7.0) Basophils (%) (Auto) 1.2 % (0.0-2.0) Neutrophils # (Auto) 2.4 10 ^3/uL (1.6-8.6) Lymphocytes # (Auto) 1.0 10 ^3/uL (0.4-5.4) Monocytes # (Auto) 0.4 10 ^3/uL (0-1.3) Eosinophils # (Auto) 0.2 10 ^3/uL (0-0.8) Basophils # (Auto) 0 10 ^3/uL (0-0.2) Nucleated Red Blood Cells 0.1 % Sodium Level 143 mmol/L (136-145) Potassium Level 4.6 mmol/L (3.5-5.1) Chloride Level 110 mmol/L (98-107) Carbon Dioxide Level 28 mmol/L (20-31) Anion Gap 5 (5-15) Blood Urea Nitrogen < 5 mg/dL (9-23) Creatinine 0.64 mg/dL (0.550-1.02) Glomerular Filtration Rate Calc 107 mL/min (>90) BUN/Creatinine Ratio 7.8 (10.0-20.0) Serum Glucose 92 mg/dL (74-106) Calcium Level 9.0 mg/dL (8.7-10.4) Total Bilirubin 0.2 mg/dL (0.2-1.0) Aspartate Amino Transferase (AST) 13 U/L (13-40) Alanine Aminotransferase (ALT) < 9 U/L (7-40) Alkaline Phosphatase 69 U/L (46-116) Total Protein 4.7 g/dL (5.7-8.2) Albumin 3.0 g/dL (3.2-4.8) Tumor Marker Alpha Fetoprotein <1.8 ng/mL (0.0-9.2) CA 19-9 Antigen 23 U/mL (0-35) CA 125 Antigen 47.2 U/mL (0.0-38.1) Erythrocyte Sedimentation Rate 10 mm/hr (0-20) Lactate Dehydrogenase 176 U/L (120-246) C-Reactive Protein High Sensitivity 7.91 mg/dL (<1.0) Thyroid Stimulating Hormone (TSH) 0.23 uIU/mL (0.55-4.78) Free Thyroxine (T4) Calculated 1.40 ng/dL (0.89-1.76) Stool for White Cells None seen Test 05/29/25 13:40 05/29/25 11:59 05/29/25 11:54 Lactic Acid Level 0.9 mmol/L (0.4-2.0) Hepatitis B Surface Antigen Negative (Negative) Hepatitis C Antibody Negative (Negative) Urine Color Yellow (Yellow) Urine Clarity Turbid (Clear) Urine pH 5.5 (5.0-9.0) Urine Specific [place] 1.025 (1.001-1.035) Urine Protein Trace (Negative) Urine Ketones 4+ (Negative) Urine Blood Negative /uL (Negative) Urine Nitrite Negative (Negative) Urine Bilirubin 1+ (Negative) Urine Urobilinogen 3 mg/dL (Negative) Urine Leukocyte Esterase Negative /uL (Negative) Urine RBC 5 /hpf (0 - 4) Urine Microscopic WBC 4 /HPF (0-5) Urine Squamous Epithelial Cells Mod /hpf (<5) Urine Bacteria Mod /hpf (None Seen) Urine Mucus Few (None Seen) Urine Glucose Normal mg/dL (Normal) Other Laboratory Tests 05/31/25 06:36 Brief Hx & Hospital Course: Michelle Cuellar is a 50 years old female with past medical history of hemorrhoids and hypothyroidism. She presented with chief complaint of diarrhea for last 6 days, resulting in weight loss (10 lb). She presented to ER and complained of worsening diarrhea with episodes occurring every 15-30 minutes. The stools were watery, foul-smelling, voluminous, floating. She complained of blood in stools. The episode of diarrhea was followed by a course of amoxicillin for ear infection. 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 No history of recent travel. No complaints of nausea, vomiting, abdominal pain, fever, GERD. She had normal bowel and bladder habits before symptom onset. She underwent a gastric bypass for weight reduction in 1999, does not complain any similar episodes in the past. Last colonoscopy in 2020 showing internal hemorrhoids. Her vitals showed increased [place], RR on admission. Labs show increased leukocytes and neutrophils. Her stool culture was positive for C difficle. She was started on oral vancomycin. Her vitals stabilized. Today, her diarrheal episodes have subsided. She is stable for discharge to home with oral vancomycin. Discharge Plan: Follow up with PCP in 1 week Exclude until 24 to 48 hours after diarrhea stops Continue oral vancomycin 4 times daily for 14 days Continue Florastor daily for 14 days Operations or Procedures Technique: CT axial images of the abdomen and pelvis are obtained without contrast. Coronal and sagittal reformats were obtained. Radiation Dose Information: CTDI volume is 10.1 mGy. Dose-length product is 543.2 mGy*cm Comparison: None FINDINGS: There is limited interpretation of the abdomen and pelvis without administration of intravenous contrast. Lung bases demonstrate no pleural effusion right lower lobe solid nodule. 3 mm left lower lobe subpleural nodule Adrenal glands, spleen, pancreas, liver unremarkable in shape. No CT evidence for cholelithiasis. Kidneys demonstrate no hydronephrosis. Postsurgical changes stomach. Small bowel loops are normal in caliber. Bowel wall thickening with surrounding stranding involving the entirety of the colon. No secondary signs for appendicitis. Numerous retroperitoneal lymph nodes up to 1 cm. Bladder partially distended. Multiple uterine leiomyomas. No free pelvic fluid. No inguinal lymphadenopathy. Moderate lumbar degenerative disc disease most pronounced at L5-S1. IMPRESSION: Limited evaluation without contrast. Diffuse colonic wall thickening with surrounding stranding. Differential considerations include colitis, inflammatory bowel disease. Postsurgical changes stomach. Numerous retroperitoneal lymph nodes up to 1 cm, likely reactive. Uterine leiomyomas including calcified leiomyomas. Pulmonary nodules up to 5 mm. Recommend follow-up per Fleischner society criteria. Condition at Discharge: Stable Final Diagnosis/Problems List Sepsis d/t Acute gastroenteritis due to infection, possible Acute colitis, due to infection, possible Inflammatory bowel disease, possible Intravascular volume depletion, resolved Tachycardia Tachypnea Leukocytosis with neutrophilia Status post gastric bypass Solitary pulmonary nodule Uterine leiomyomas Hypothyroidism Hypokalemia Discharge Disposition: Home Discharge Instruct/Medications Diet: Regular Activity: No Restrictions, As Tolerated Care Plan: Follow up with PCP in 1 week Exclude until 24 to 48 hours after diarrhea stops Continue oral vancomycin 4 times daily for 14 days Continue Florastor daily for 14 days Scheduled Ibuprofen (Ibuprofen), 1 TAB PO TID Levothyroxine Sodium (Synthroid), 1 TAB PO DAILY, (Reported) Lidocaine (Anorectal) (Lidocaine 5%), 5 % EX TID Vancomycin Hcl (Vancomycin Po), 125 MG PO Q6HR Yeast (S. Boulardii)(S. Cerevi (Florastor), 250 MG PO BID Scheduled PRN Acetaminophen W/ Codeine (Tylenol W/Cod #3), 1 TAB PO Q6HP PRN Discharge Statement: "Patient was advised to return to the ER or call 911 if any headaches, dizziness, shortness of breath, chest pain, abdominal pain, bleeding, fevers, or worsening of medical condition. Patient was counseled about treatment plan, medications, possible side effects, patientverbalized understanding. All questions were answered to the best of my ability. This discharge took greater then 30 minutes in planning, reviewing documentation, counseling the patient, and discussing with other team members." ASSESSMENT ASSESSMENT Assessment INEZ HANSEN RESIDENT May 31, 2025 11:22
[2025-05-31] MEDS ORDERED: VANC125PO PO (12:51)
[2025-05-31] MEDS ORDERED: SACC250C PO (12:53)
[2025-05-31 13:00] VITALS: BP 101/51; PULSE 86; RESP 16; TEMP 98.6; O2SAT 97
== END 2025-05-31 14:50 | disposition home or self-care (01) | DRG 872 ==
LOC: ER 11:15 → OVERFLOW 18:47 → WEST WING 18:49 → CENTRAL 05-30 19:54
PROVIDERS: ADMIT Student in an Organized Health Care Education/Training Program; ATTEND Student in an Organized Health Care Education/Training Program
DX: A41.9 Sepsis, unspecified organism (principal); A09 Infectious gastroenteritis and colitis, unspecified; D25.9 Leiomyoma of uterus, unspecified; R91.1 Solitary pulmonary nodule; E03.9 Hypothyroidism, unspecified; E87.6 Hypokalemia; K63.89 Other specified diseases of intestine; E86.9 Volume depletion, unspecified; Z98.84 Bariatric surgery status; Z79.899 Other long term (current) drug therapy; Z98.891 History of uterine scar from previous surgery
CPT/HCPCS: 36415; 74176; 80048; 80053; 81001; 82105; 83605; 83615; 84132; 84439; 84443; 85025; 85048; 85652; 86141; 86301; 86304; 86803; 87040; 87045; 87340; 87427; 87493; 96365; G0378; J3490